=== PATIENT | female | born 1980 | race African-American/Black ===

== ENCOUNTER 2017-08-22 03:55 | Emergency (ER) | payer BC ==
--- NOTE | 2017-08-22 03:59 | EDM.PDOC ---
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 Past medical history: As per history of present illness and as reviewed below otherwise noncontributory. Surgical history: As per history of present illness and as reviewed below otherwise noncontributory. Social history: No reported history of drug or alcohol abuse. Family history: As per history of present illness and as reviewed below otherwise noncontributory. Physical exam: HEENT: Atraumatic, normocephalic, pupils reactive, negative for conjunctival pallor or scleral icterus, mucous membranes moist, throat clear, neck supple, nontender, trachea midline. Lungs: Clear to auscultation, breath sounds equal bilaterally, chest nontender. Heart: S1S2, regular, negative for clicks, rubs, or JVD. Abdomen: Soft, nondistended, nontender. Negative for masses or hepatosplenomegaly. Negative for costovertebral tenderness. Pelvis: Stable nontender. Genitourinary: Deferred by patient Rectal: Deferred. Extremities: Atraumatic, negative for cords or calf pain. Neurovascular unremarkable. Neuro: Awake, alert, oriented. Cranial nerves II through XII unremarkable. Cerebellum unremarkable. Motor and sensory unremarkable throughout. Exam nonfocal. Diagnostics: [CBC CMP UA hCG Quant ABO type OB ultrasound limited ] Therapeutics: [] Impression: Threatened [ 7 weeks 3 days by LMP ABO type O+ ] LMP 07/01/17 EDC 04/07/2018 Definitive disposition and diagnosis as appropriate pending reevaluation and review of above. - Related Data Allergies Allergy/AdvReac Type Severity Reaction Status Date / Time chloroquine Allergy Itching Verified 08/22/17 04:12 Home Meds: Home Meds . [No Known Home Meds] 08/22/17 [History] ED ROS GENERAL - Review of Systems Review Of Systems: ROS reveals no pertinent complaints other than HPI. ED EXAM, GENERAL - Physical Exam Exam: See Below Course - Vital Signs Last Recorded V/S: Last Vital Signs Temp 97.2 F 08/22/17 03:55 Pulse 78 08/22/17 03:55 Resp 18 08/22/17 03:55 BP 116/72 08/22/17 03:55 Pulse Ox 100 08/22/17 03:55 - Orders/Labs/Meds Orders: Active Orders 24 hr Category Date Time Status OB Ltd 1 or More Fetus [US] Stat Exams 08/22/17 03:56 Taken CULTURE URINE [RM] Stat Lab 08/22/17 05:38 Ordered Labs: Laboratory Tests 08/22/17 08/22/17 08/22/17 Range/Units 03:56 04:15 04:15 WBC 7.98 (4.0-11.0) K/uL RBC 4.43 (4.30-5.90) M/uL Hgb 10.5 L (12.0-16.0) g/dL Hct 32.2 L (36.0-46.0) % MCV 72.7 L (80.0-98.0) fL MCH 23.7 L (27.0-32.0) pg MCHC 32.6 (31.0-37.0) g/dL RDW Std Deviation 50.7 (28.0-62.0) fl RDW Coeff of [place] 19 H (11.0-15.0) % Plt Count 267 (150-400) K/uL MPV 10.10 (7.40-12.00) fL Neut % (Auto) 60.4 (48.0-80.0) % Lymph % (Auto) 27.8 (16.0-40.0) % [place] % (Auto) 8.1 (0.0-15.0) % Eos % (Auto) 3.1 (0.0-7.0) % Baso % (Auto) 0.6 (0.0-1.5) % Neut # (Auto) 4.8 (1.4-5.7) K/uL Lymph # (Auto) 2.2 (0.6-2.4) K/uL [place] # (Auto) 0.7 (0.0-0.8) K/uL Eos # (Auto) 0.3 (0.0-0.7) K/uL Baso # (Auto) 0.1 (0.0-0.1) K/uL Nucleated RBC % 0.0 /100WBC Nucleated RBCs # 0 K/uL Sodium 139 (136-145) mmol/L Potassium 3.6 (3.5-5.1) mmol/L Chloride 106 (98-107) mmol/L Carbon Dioxide 22.7 (21.0-32.0) mmol/L BUN 12 (7.0-18.0) mg/dL Creatinine 0.8 (0.6-1.0) mg/dL Est Cr Clr Drug Dosing 82.33 mL/min Estimated GFR (MDRD) > 60.0 ml/min Glucose 92 (74-106) mg/dL Calcium 8.8 (8.5-10.1) mg/dL Total Bilirubin 0.3 (0.2-1.0) mg/dL AST 17 (15-37) U/L ALT 19 (14-63) U/L Alkaline Phosphatase 57 (46-116) U/L Total Protein 7.6 (6.4-8.2) g/dL Albumin 3.6 (3.4-5.0) g/dL Globulin 4.0 H (2.0-3.5) g/dL Albumin/Globulin Ratio 0.9 L (1.3-2.8) HCG, Quant 1637.0 mIU/mL Urine Color Urine Appearance Urine pH (5.0-8.0) Ur Specific [place] (1.001-1.035) Urine Protein (NEGATIVE) mg/dL Urine Glucose (UA) (NEGATIVE) mg/dL Urine Ketones (NEGATIVE) mg/dL Urine Occult Blood (NEGATIVE) Urine Nitrite (NEGATIVE) Urine Bilirubin (NEGATIVE) Urine Urobilinogen (<2.0) EU/dL Ur Leukocyte Esterase (NEGATIVE) Urine RBC (0-2/HPF) Urine WBC (0-5/HPF) Ur Epithelial Cells (NONE-FEW) Urine Bacteria (NEGATIVE) Blood Type O POSITIVE 08/22/17 Range/Units 04:23 WBC (4.0-11.0) K/uL RBC (4.30-5.90) M/uL Hgb (12.0-16.0) g/dL Hct (36.0-46.0) % MCV (80.0-98.0) fL MCH (27.0-32.0) pg MCHC (31.0-37.0) g/dL RDW Std Deviation (28.0-62.0) fl RDW Coeff of [place] (11.0-15.0) % Plt Count (150-400) K/uL MPV (7.40-12.00) fL Neut % (Auto) (48.0-80.0) % Lymph % (Auto) (16.0-40.0) % [place] % (Auto) (0.0-15.0) % Eos % (Auto) (0.0-7.0) % Baso % (Auto) (0.0-1.5) % Neut # (Auto) (1.4-5.7) K/uL Lymph # (Auto) (0.6-2.4) K/uL [place] # (Auto) (0.0-0.8) K/uL Eos # (Auto) (0.0-0.7) K/uL Baso # (Auto) (0.0-0.1) K/uL Nucleated RBC % /100WBC Nucleated RBCs # K/uL Sodium (136-145) mmol/L Potassium (3.5-5.1) mmol/L Chloride (98-107) mmol/L Carbon Dioxide (21.0-32.0) mmol/L BUN (7.0-18.0) mg/dL Creatinine (0.6-1.0) mg/dL Est Cr Clr Drug Dosing mL/min Estimated GFR (MDRD) ml/min Glucose (74-106) mg/dL Calcium (8.5-10.1) mg/dL Total Bilirubin (0.2-1.0) mg/dL AST (15-37) U/L ALT (14-63) U/L Alkaline Phosphatase (46-116) U/L Total Protein (6.4-8.2) g/dL Albumin (3.4-5.0) g/dL Globulin (2.0-3.5) g/dL Albumin/Globulin Ratio (1.3-2.8) HCG, Quant mIU/mL Urine Color YELLOW Urine Appearance SLT CLOUDY Urine pH 6.0 (5.0-8.0) Ur Specific [place] <= 1.005 (1.001-1.035) Urine Protein NEGATIVE (NEGATIVE) mg/dL Urine Glucose (UA) NEGATIVE (NEGATIVE) mg/dL Urine Ketones NEGATIVE (NEGATIVE) mg/dL Urine Occult Blood LARGE H (NEGATIVE) Urine Nitrite NEGATIVE (NEGATIVE) Urine Bilirubin NEGATIVE (NEGATIVE) Urine Urobilinogen 0.2 (<2.0) EU/dL Ur Leukocyte Esterase NEGATIVE (NEGATIVE) Urine RBC 1-4 (0-2/HPF) Urine WBC 0-2 (0-5/HPF) Ur Epithelial Cells OCCASIONAL (NONE-FEW) Urine Bacteria FEW (NEGATIVE) Blood Type Departure - Departure Time of Disposition: 06:46 Disposition: Home, Self-Care 01 Condition: Good Clinical Impression: Threatened - Discharge Information Referrals: PCP,None [Primary Care Provider] - Forms: ED Department Discharge Additional Instructions: Continue vitamins Return if symptoms persist or worsen or new concerning symptoms develop Follow-up with your OB doctor as scheduled sooner as needed Call your provider on Wednesday and update she may want to see you sooner than September 01 with these new findings [facility] [address] [address] The following information is given to patients seen in the emergency department who are being discharged to home. This information is to outline your options for follow-up care. We provide all patients seen in our emergency department with a follow-up referral. The need for follow-up, as well as the timing and circumstances, are variable depending upon the specifics of your emergency department visit. If you don't have a primary care physician on staff, we will provide you with a referral. We always advise you to contact your personal physician following an emergency department visit to inform them of the circumstance of the visit and for follow-up with them and/or the need for any referrals to a consulting specialist. The emergency department will also refer you to a specialist when appropriate. This referral assures that you have the opportunity for follow-up care with a specialist. All of these measure are taken in an effort to provide you with optimal care, which includes your follow-up. Under all circumstances we always encourage you to contact your private physician who remains a resource for coordinating your care. When calling for follow-up care, please make the office aware that this follow-up is from your recent emergency room visit. If for any reason you are refused follow-up, please contact the [facility] emergency department at and asked to speak to the emergency department charge nurse. - My Orders Last 24 Hours: My Active Orders 08/22/17 03:56 OB Ltd 1 or More Fetus [US] Stat 08/22/17 05:38 CULTURE URINE [RM] Stat - Assessment/Plan Last 24 Hours: My Active Orders 08/22/17 03:56 OB Ltd 1 or More Fetus [US] Stat 08/22/17 05:38 CULTURE URINE [RM] Stat
[2017-08-22 05:33] LABS: CHLORIDE,CL 106 mmol/L (98-107); SODIUM,NA 139 mmol/L (136-145)
--- NOTE | 2017-08-23 06:54 | US ---
EXAM DATE: 08/22/17 PATIENT'S AGE: 37 Patient: [facility] Facility: [place], [place] Site . Site : [id number] Study: US OB Pelvis -08/22/2017 6:43:47 AM Ordering Physician: Doctor Summers Final Report: INDICATION: . Vaginal bleeding. TECHNIQUE: Ultrasound OB pelvis transabdominal. Real-time mason-scale imaging of the pelvis was performed. COMPARISON: None available FINDINGS: The uterus measures 11.0 x 5.7 x 6.7 centimeters. There is a small saclike structure within the endometrium with a mean sac diameter corresponding to 5 weeks and 3 days. No pole or definite yolk sac are seen. The endometrium is heterogeneous, measuring up to 1.7 centimeters. The right ovary measures 2.8 x 1.8 x 2.3 centimeters and the left ovary measures 4.4 x 2.0 x 3.0 centimeters , containing a 1.6 centimeter irregular cyst/dominant follicle. No significant free fluid is seen. IMPRESSION: A small saclike structure within the endometrium, corresponding to 5 weeks and 3 days by mean sac diameter, without a pole or definite yolk sac. The findings could represent an early intrauterine gestation, however an ectopic gestation is not excluded. Correlate with beta HCG levels and a short-term followup study. Dictated by Jose Telles MD @ 08/22/2017 7:11:13 AM Dictated by: Jose Telles MD @ 08/22/2017 07:11:16 (Electronic Signature) Report Signed by Proxy. DUONG
== END 2017-08-22 07:47 | disposition home or self-care (01) ==
LOC: MW.ED 03:55
DX: O20.0 Threatened abortion (principal); Z88.8 Allergy status to other drugs, medicaments and biological substances; Z3A.01 Less than 8 weeks gestation of pregnancy
CPT/HCPCS: 36415; 76815; 76815-26; 80053; 81001; 84144; 84702; 85025; 86900; 86901; 87086; 99283; 99284-25

== ENCOUNTER 2017-08-26 16:34 | Day surgery (SDC) | payer BC ==
[2017-08-26] MEDS ORDERED: Lactated Ringers 1,000 ML IV SCH (17:00)
--- NOTE | 2017-08-26 17:04 | PCM.PREANE ---
Preanesthetic Assessment - Procedure Proposed Procedure: D&C - Dr. Corral has called for this case to be done emergently although pt's Hgb is unchanged from 4 days ago and pt denies any heavy bleeding - Anesthesia/Transfusion/Family Hx Anesthesia History: Prior Anesthesia Without Reaction (Pt unsure if general anesthesia or just sedation, but denies any problems) Family History of Anesthesia Reaction: No Transfusion History: No Prior Transfusion(s) Intubation History: Unknown - Review of Systems General: No Symptoms Pulmonary: No Symptoms Cardiovascular: No Symptoms Gastrointestinal: No Symptoms Neurological: No Symptoms Other: Reports: None - Physical Assessment NPO Status Date: 08/25/17 NPO Status Time: 21:00 ASA Class: 2E Mental Status: Alert & Oriented x3 Airway Class: Mallampati = 2 Dentition: Reports: Normal Dentition Thyro-Mental Finger Breadths: 3 Mouth Opening Finger Breadths: 3 ROM/Head Extension: Full Lungs: Clear to Auscultation, Normal Respiratory Effort - Lab Values: Laboratory Last Values Hgb 10.5 g/dL (12.0-16.0) L 08/26/17 12:20 Hct 33.0 % (36.0-46.0) L 08/26/17 12:20 Blood Type O POSITIVE 08/26/17 12:20 Antibody Screen NEGATIVE 08/26/17 12:20 - Allergies Allergies/Adverse Reactions: Allergies Allergy/AdvReac Type Severity Reaction Status Date / Time chloroquine Allergy Itching Verified 08/22/17 04:12 - Blood Blood Available: No Product(s) Available: None - Anesthesia Plan Free Text/Narrative:: GLMA vs GETA - Acknowledgements Anesthesia Type Planned: General Anesthesia Pt an Appropriate Candidate for the Planned Anesthesia: Yes Alternatives and Risks of Anesthesia Discussed w Pt/Guardian: Yes Pt/Guardian Understands and Agrees with Anesthesia Plan: Yes PreAnesthesia Questionnaire [employer] History: Reports: Endocrine/Metabolic History: Reports: Obesity/BMI 30+ - Past Surgical History Female Surgical History: Reports: Section, D&C - SUBSTANCE USE Smoking Status *Q: Never Smoker Recreational Drug Use History: No - HOME MEDS Home Medications: Home Meds . [No Known Home Meds] 08/22/17 [History] - CURRENT (IN HOUSE) MEDS Current Meds: Current Medications Azithromycin 1,000 mg/ Sodium (Chloride) 500 mls @ 250 mls/hr IV ONETIME ONE Stop: 08/26/17 19:29 Lactated Ringer's (Ringers, Lactated) 1,000 mls @ 125 mls/hr IV ASDIRECTED ALEXANDRA
[2017-08-26] MEDS ORDERED: Ondansetron 4 MG/2 ML SDV ONE (17:13)
[2017-08-26] MEDS ORDERED: Lidocaine 2% 5 ML SDV ONE (17:13)
[2017-08-26] MEDS ORDERED: Midazolam 1 MG/ML 2 ML SDV ONE (17:14)
[2017-08-26] MEDS ORDERED: fentaNYL 100 MCG/2 ML SDV ONE (17:14)
[2017-08-26] MEDS ORDERED: Propofol 200 MG/20 ML SDV ONE (17:14)
[2017-08-26] MEDS ORDERED: Azithromycin 1,000 MG in Sodium Chloride 0.9% 500 ML IV ONE (17:30)
[2017-08-26] MEDS ORDERED: Phenylephrine/Normal Saline 100 MCG/ML 10 ML Syringe ONE (17:58)
[2017-08-26] MEDS ORDERED: Ketorolac 30 MG/ML SDV ONE (18:06)
[2017-08-26] MEDS ORDERED: fentaNYL 100 MCG/2 ML SDV IVPUSH PRN (18:17)
--- NOTE | 2017-08-26 18:32 | PCM.POSTAN ---
POST ANESTHESIA ASSESSMENT - MENTAL STATUS Mental Status: Alert, Oriented - RESPIRATORY Respiratory Status: Respiratory Rate WNL, Airway Patent, O2 Saturation Stable - CARDIOVASCULAR CV Status: Pulse Rate WNL, Blood Pressure Stable - GASTROINTESTINAL GI Status: No Symptoms - PAIN Pain Score: 0 - POST OP HYDRATION Hydration Status: Adequate & Stable - OBSERVATIONS Free Text/Narrative:: Pt stable for discharge to phase II recovery.
[2017-08-26] MEDS ORDERED: Ketorolac 15 MG/ML SDV IVPUSH PRN (18:40)
--- NOTE | 2017-08-26 18:50 | PCM.OPNOTE ---
- General Post-Op/Procedure Note Date of Surgery/Procedure: 08/26/17 Operative Procedure(s): Dilatation , suction and currettage Findings: 8 weeks sized anterverted uterus , cervical os closed , moderate amount of POC retrieved Pre Op Diagnosis: Incomplete Post-Op Diagnosis: Incomplete Anesthesia Technique: MAC Primary Surgeon: Salvador Crain Anesthesia Provider: shelby Pathology: Product of conception Fluid Replacement, Intraop: 500 Output, Urine Amount: 0 EBL in mLs: 5 Complications: None Condition: Good Free Text/Narrative:: Intake & Output 08/26/17 08/26/17 08/26/17 06:59 14:59 22:59 Intake Total 700 Balance 700
--- NOTE | 2017-08-26 19:17 | PCM48HPAN ---
Post Anesthesia Note - EVALUATION WITHIN 48HRS OF ANESTHETIC Vital Signs in Normal Range: Yes Patient Participated in Evaluation: Yes Respiratory Function Stable: Yes Airway Patent: Yes Cardiovascular Function Stable: Yes Hydration Status Stable: Yes Pain Control Satisfactory: Yes Nausea and Vomiting Control Satisfactory: Yes Mental Status Recovered: Yes Resp Rate: 14
--- NOTE | 2017-08-29 21:41 | OR ---
SURGEON: DAO CUBA DATE OF PROCEDURE:08/26/2017 PREOPERATIVE DIAGNOSIS: A 37-year-old G4, P 3-0-0-3 at 7 weeks 3 days with incomplete . POSTOPERATIVE DIAGNOSIS: A 37-year-old G4, P 3-0-0-3 at 7 weeks 3 days with incomplete . PROCEDURE: Suction dilatation and curettage. ANESTHESIA: General endotracheal. IV FLUID: 500. ESTIMATED BLOOD LOSS: 5 mL. URINE OUTPUT: 10 mL. SPECIMENS: Products of conception. COMPLICATIONS: None. FINDING: A 6-week size anteverted uterus. The cervix was slightly open. Moderate amount of products of conception was retrieved. BRIEF HISTORY ABOUT THE PATIENT: She is a 37-year-old G4, P 3-0-0-3, who presented at 7 weeks 3 days, complaining of vaginal bleeding for 3 days. She had been soaking pads and when she was examined, she was noted to have moderate bleeding. Ultrasound showed products of conception. DESCRIPTION OF PROCEDURE: The patient was taken to the operating room, where general anesthesia was performed without difficulty. She was placed in dorsal lithotomy position with Mj stirrups. An examination under anesthesia revealed a 7-week sized anteverted uterus. The cervix was mildly open. The patient was prepared and draped in the normal sterile fashion. A weighted speculum was placed into the posterior aspect of the vagina. An Allis was placed on the anterior lip of the cervix. The uterus was then carefully dilated to accommodate the 7 mm suction curette. The 7 mm suction curette was advanced to the uterine fundus. The suction was then started. The products of conception were evacuated with a curette rotating on the outward movement. Then, a gentle sharp curettage was then performed with large curette. A suction curette was reintroduced to clear the uterus. The Allis was removed from the cervix. Good hemostasis was noted. The patient tolerated the procedure well. All instrument and pad count were correct x2. The patient was awakened from general anesthesia and was taken to recovery in stable condition. The patient will go home and come back to clinic in 2 weeks. She was left in the recovery room in stable condition. REGGIE / FUNMI /[id number] [facility]
== END 2017-08-26 22:40 | disposition home or self-care (01) ==
LOC: MW.SDS 16:34 → MW.MS 16:40 → MW.SDS 22:40
PROVIDERS: ATTEND Obstetrics & Gynecology
DX: O03.4 Incomplete spontaneous abortion without complication (principal); Z88.8 Allergy status to other drugs, medicaments and biological substances; Z79.899 Other long term (current) drug therapy
CPT/HCPCS: 36415; 59812; 85014; 85018; 86850; 86900; 86901; J0456; J1885; J2250; J2405; J3010; J7040; J7120; 01965; 88305; J2704

== ENCOUNTER 2024-04-22 09:19 | Emergency (ER) | payer OTHER ==
[2024-04-22] MEDS: traMADol 50 MG Tab PO ONE (10:45)
[2024-04-22] MEDS: Lidocaine 4% 1 each Patch TOP STA (10:45)
== END 2024-04-22 11:59 | disposition home or self-care (01) ==
LOC: MW.ED 09:19
DX: S46.911A Strain of unspecified muscle, fascia and tendon at shoulder and upper arm level, right arm, initial encounter (principal); Z88.8 Allergy status to other drugs, medicaments and biological substances; E66.9 Obesity, unspecified; Z68.30 Body mass index [BMI] 30.0-30.9, adult; Z75.8 Other problems related to medical facilities and other health care; X50.0XXA Overexertion from strenuous movement or load, initial encounter
CPT/HCPCS: 73030; 99283; A9270